=== PATIENT | male | born 1965 | race Caucasian/White ===

== ENCOUNTER → 2016-10-01 | Day surgery (SDC) | payer OTHER ==
[~2016-10-01] VITALS: Ht 170.2 cm; Wt 85.3 kg
[~2016-10-01] MED LIST: AMOXIL 875 MG875 MG PO; ATENOLOL100 M1 PO; AZITHROMYCIN250 M1 PO; BENADRYL PO; CELEXA40 M1 PO; CLINDAMYCIN HY300 MG PO; LIDO PO; LIPITOR20 M2 PO; LOSARTAN POTAS100 M1 PO; MAALOX PO; MEDROL DOSEPAK1 PA1 PO; PREDNISONE10 M2 PO; SYNTHROID200 MCG PO; SYNTHROID50 MCG PO; TRAMADOL HCL50 M1 PO; VICODIN5-300 PO
--- NOTE | 2016-10-01 19:28 | Operative Report ---
Operative/Inv Procedure Report Surgery Date: 10/01/16 Name of Procedure: 1. Single column hemorrhoidectomy 2. Excision of solitary condyloma, rectal Pre-Operative Diagnosis: 1. Bleeding internal hemorrhoid 2. Anal condyloma, recurrent Post-Operative Diagnosis: Same same Estimated Blood Loss: scant Surgeon/Manager Architecture: GUILLERMO RUIZ MD Anesthesia: local monitored anesthesi Operative/Procedure Note Note: After consent is brought to the operative laid supine. He's placed in lithotomy position and sedated. His perianus was prepped and draped. Perianal nerve block was created with a cocktail local anesthesia. Digital rectal examination was unrevealing. Proctoscopy showed circumferential internal hemorrhoids one of which appeared to be grade 3. There was a nodule consistent with recurrent condyloma. There is no perianal condyloma. There was no other anal canal or rectal condyloma. The condyloma was excised sharply and passed off the field. I then proceeded perform sickle column hemorrhoidectomy. Skin around the anus was after local anesthesia an ellipse of skin was taken to encompass the external hemorrhoidal component. We dissected up proximally to the upper extent. The vessels were taken up off of the sphincter muscle. The proximal vessels then suture ligated with 3-0 Vicryl suture. The mucosa was then reapproximated with a running 4-0 chromic gut. Hemostasis was adequate. Bacitracin ointment was applied and sterile dressings applied. Patient tolerated procedure well CC: MANDY DUNCAN,JUANA Núñez
== END ==
LOC: STS 03:25
DX: A63.0 Anogenital (venereal) warts (principal); K64.8 Other hemorrhoids; E03.9 Hypothyroidism, unspecified; M32.9 Systemic lupus erythematosus, unspecified; E78.5 Hyperlipidemia, unspecified; I10 Essential (primary) hypertension; F17.200 Nicotine dependence, unspecified, uncomplicated
CPT/HCPCS: 88304; 88305; 93005; 93010; J0131; J2250